=== PATIENT | male | born 1995 | race Caucasian/White ===

== ENCOUNTER 2017-11-26 02:06 | Emergency (ER) | payer OTHER ==
[~2017-11-26] VITALS: Ht 188 cm; Wt 101.9 kg
[2017-11-26 02:13] VITALS: TEMP 36.7; Ht 188 cm; Wt 101.9 kg
[2017-11-26] MEDS ORDERED: IBUP-1050 PO (02:22)
[2017-11-26 03:20] VITALS: BP 114/93; PULSE 114; O2SAT 96
--- NOTE | 2017-11-26 05:34 | EMERGENCY ROOM VISIT NOTE ---
ED Visit Note First contact with patient: 02:08 CHIEF COMPLAINT: knee pain HISTORY OF PRESENT ILLNESS: This 22 yo patient presents to the emergency department with friend after sustaining an injury to the right knee while walking. The patient denies any other injuries besides their knee. The patient c/o swelling without bruising. There is pain diffusely. They rate the pain as throbbing and 5/10. The patient states they are not to walk on it. No numbness or tingling. Patient has a history of patellar dislocations and this occurred again. He was walking when the patella slid out of alignment and was unable to bear weight. No ankle, foot or hip pain. He doesn't have an orthopedic doctor. REVIEW OF SYSTEMS: A 6 system review of systems was completed with positives and pertinent negatives listed in the HPI. ALLERGIES: none MEDICATIONS: none PMH: Patella dislocation SOCIAL HISTORY: no drug use PHYSICAL EXAM: Vital Signs: Reviewed Nurse's notes, vital signs stable. GENERAL : Pleasant male, no acute distress, but appears in pain, well-developed, well- nourished. MENTAL STATUS: Alert, oriented to person place and time, and cooperative. MUSCULOSKELETAL: The right knee is swollen. There is no ecchymosis. There is joint effusion present. The patient is tender diffusely. There is no joint line tenderness. The patella not subluxate. Range of motion is intact. Strength of the quads and hamstrings is 5/5. Irena's is negative. Brooks's and Anterior Drawer tests are negative. There is pain with varus and valgus stressing. The foot and toes are warm and well-perfused. Dorsalis pedis pulse 2+. Sensation to pain and light touch is intact. Capillary refill less than 2 seconds. EMERGENCY DEPARTMENT COURSE: I examined the patient. EMS gave the patient that now and reduce the patellar dislocation prior to the ER arrival. X-rays of the right knee were reviewed by myself and my attending and reveal a possible avulsion fracture to the patella. The patient was placed in a knee immobilizer under my direction and the position was satisfactory. He was advised to wear this at all times and is up and about. The patient was instructed on the use of crutches. He was advised to follow-up with orthopedics for definitive care for his knee injury. He was advised to return to the ER immediately for severe pain, numbness, tingling, worsening signs or symptoms or as needed. The patient was discharged home in good condition. DIAGNOSIS: #1 right patella dislocation #2 patella avulsion fracture, right DISCHARGE INSTRUCTIONS: as below Current/Historical Medications Scheduled PRN Ibuprofen (Advil), 400-600 MG PO DIRECTED PRN for Pain Allergies Coded Allergies: No Known Allergies (Unverified , 11/26/17) Vital Signs Date Time Temp Pulse Resp B/P (MAP) Pulse Ox O2 Delivery O2 Flow Rate FiO2 11/26/17 03:20 114 20 114/93 96 11/26/17 02:13 36.7 114 16 137/74 98 Room Air Departure Information Impression Primary Impression: Closed dislocation of patella Dispostion Home / Self-Care Condition GOOD Referrals Nicholas Mcleod M.D. Forms HOME CARE DOCUMENTATION FORM, IMPORTANT VISIT INFORMATION Patient Instructions Kneecap Pro[employer], [employer] Additional Instructions DO NOT drive, drink alcohol, operate machinery, or perform dangerous activities today. You were given medications in the ER that can affect your ability to safely function or operate a vehicle. Ibuprofen(Motrin, Advil) may be used for fever or pain. Use 600mg every six hours as needed. Take with food. Avoid using more than 2400mg in a 24 hour period. Do not use 2400mg per day for more than three consecutive days without physician direction. Prolonged inappropriate use can lead to stomach upset or ulcers. This medication can be taken if you need to drive, work, or perform activities which may be dangerous when taking narcotic pain medication. (AND/OR) Acetaminophen(Tylenol) may be used for fever or pain. Use 1000mg every six hours as needed. Avoid using more than 3000mg in a 24 hour period. This medication can be taken if you need to drive, work, or perform activities which may be dangerous when taking narcotic pain medication. Ice compresses for 20 minutes at a time four times daily for 2-3 days. Use the crutches as instructed. Rest and elevate your injury. Wear knee immobilizer when up and about. Do not have it so tight that you cannot feel your foot. Continue current medications. Return to the ER immediately for any numbness, tingling, severe pain, extreme swelling in the extremity or as needed. Call Orthopedics tomorrow to arrange follow up for your injury.
--- NOTE | 2017-11-26 06:43 | DIAGNOSTIC IMAGING REPORT ---
R KNEE 3 VIEWS HISTORY: 22 years-old Male knee pain acute right knee pain with history of prior dislocation. COMPARISON: None available TECHNIQUE: 3 views of the right knee FINDINGS: There is an apparent donor site noted with cortical irregularity and small defect within the region of the medial patellar facet superficially. Additionally there is a 10 x 4 mm irregular bone fragment seen just deep to this area medial to the medial patellar facet suggesting loose body. Moderate associated soft tissue swelling about the knee with moderate joint effusion. No additional acute fracture or subluxation. No significant degenerative changes. IMPRESSION: 1. 10 x 4 mm irregular bone fragment adjacent to the medial patellar facet suggests acute avulsion fracture with nearby donor site as above. Correlate clinically to assess for patellar retinacular injury. If of further clinical concern, follow-up MRI of the knee may be considered. 2. Moderate soft tissue swelling with moderate joint effusion. The above report was generated using voice recognition software. It may contain grammatical, syntax or spelling errors. Electronically signed by: Issa Pacheco M.D. 11/26/2017 6:41 AM Dictated Date/Time: 11/26/2017 6:38 AM
== END 2017-11-26 03:22 | disposition home or self-care (01) ==
LOC: EDBD 02:06 → C.EDA 02:12
DX: S83.004A Unspecified dislocation of right patella, initial encounter (principal); X58.XXXA Exposure to other specified factors, initial encounter; Y93.01 Activity, walking, marching and hiking